=== PATIENT | male | born 1980 | race Caucasian/White ===

== ENCOUNTER 2020-10-09 18:57 | Emergency (ER) | payer OTHER ==
[2020-10-09 19:09] VITALS: BP 130/85
[2020-10-09] MEDS ORDERED: AMOX/CLAV 875 MG/125 MG TABLET PO STA (20:12)
--- NOTE | 2020-10-09 20:14 | ED Physician Documentation ---
History of Present Illness - Stated complaint Stated Complaint: CAT BITE - Chief complaint Chief Complaint: Wound - History of Present Illness Timing: Prior to arrival - Additonal information Additional information: 40-year-old male presents to the emergency department for evaluation of cat bite puncture wounds to the left index finger sustained by his animal at home this evening. His also presents for evaluation of cat scratches and bite wounds as well. Animals vaccines are up-to-date. This gentleman's tetanus is up-to-date. Review of Systems Constitutional: reports: Reviewed and negative Ears: reports: Reviewed and negative Nose: reports: Reviewed and negative Throat: reports: Reviewed and negative Cardiac: reports: Reviewed and negative Respiratory: reports: Reviewed and negative GI: reports: Reviewed and negative : reports: Reviewed and negative Skin: reports: Bite / sting (left index finger) PD PAST MEDICAL HISTORY - Past Medical History Past Medical History: Yes Cardiovascular: High cholesterol - Past Surgical History Past Surgical History: No - Present Medications Home Medications: Ambulatory Orders Medication Instructions Recorded Confirmed Amox/Clav 875/125 [Augmentin] 1 each PO Q12H #20 tablet 10/09/20 - Social History Does the pt smoke?: No Smoking Status: Never smoker Does the pt have substance abuse?: No - Immunizations Immunizations are current?: Yes PD ED PE EXPANDED - Extremities Extremities: Left finger(s) (3 puncture wounds left index finger. 1 on dorsum just above MCP. 2 on palmar surface at DIP joint. Normal flexion extension of digit against resistance. 2+ distal radial pulse of left hand) Results - Vitals Vitals: Vital Signs - 24 hr 10/09/20 19:02 Temperature 36.6 C Heart Rate 68 Respiratory 14 Rate Blood Pressure 130/85 H O2 Saturation 98 Oxygen O2 Source Room air PD MEDICAL DECISION MAKING - ED course Complexity details: considered differential, d/w patient ED course: 40-year-old male presents the emergency department for evaluation and treatment of cat bite to left index finger. His tetanus is up-to-date. He will be started on Augmentin twice daily for 10 days. Emergent return precautions for concerns of infection discussed Departure - Departure Disposition: Home, Self Care Clinical Impression: Cat bite involving extremity Condition: Stable Record reviewed to determine appropriate education?: Yes Instructions: ED Animal Bite Ch Prescriptions: Amox/Clav 875/125 [Augmentin] 1 each PO Q12H #20 tablet Comments: It is important that you take the antibiotics as prescribed. Cat bites in particular have a high risk of infection. I recommend that you wash your wounds daily with warm soap and water and apply any antibiotic biotic ointment such as Neosporin or bacitracin. If at any point you have fevers, redness, swelling milky drainage or concerns of infection in this hand please return immediately to the ER
== END 2020-10-09 20:31 | disposition home or self-care (01) ==
LOC: ED 18:57
DX: S61.251A Open bite of left index finger without damage to nail, initial encounter (principal); W55.01XA Bitten by cat, initial encounter; Y93.89 Activity, other specified; Y92.009 Unspecified place in unspecified non-institutional (private) residence as the place of occurrence of the external cause
CPT/HCPCS: 99281; 99282; A9270

== ENCOUNTER 2023-12-21 08:36 | Emergency (ER) | payer OTHER ==
--- NOTE | 2023-12-21 09:23 | XRAY Report ---
PROCEDURE: Toe(s) 2+V RT INDICATIONS: great toe injury TECHNIQUE: 3 views of the first toe(s) acquired. COMPARISON: None. FINDINGS: Bones: No fractures or dislocations. No suspicious bony lesions. Soft tissues: No suspicious soft tissue densities. IMPRESSION: No acute fracture. No osseous lesion. If symptoms and/or clinical suspicion for pathology continue, f urther assessment with repeat plain films, or advanced imaging (e.g., CT, MRI, or bone scan) is recom mended for further assessment. Reviewed by: Bud Velarde MD on 12/21/2023 9:21 AM PST Approved by: Bud Velarde MD on 12/21/2023 9:21 AM [facility] Station ID: [id number]
[2023-12-21] MEDS: LIDOCAINE-EPINEPH-TETRACAINE 3 ML SYRINGE TOP STA (09:38)
--- NOTE | 2023-12-21 10:32 | ED Physician Documentation ---
PD HPI LOWER EXT INJURY - Stated complaint Stated Complaint: RT FOOT INJ - Chief complaint Chief Complaint: Trauma Ext - History obtained from History obtained from: Patient - Additional information Additional information: Patient is a 43-year-old male presenting for evaluation of injury to right great toe that happened last night. Patient dropped a cast iron skillet accidentally onto his toe. He reports having some bleeding. Does not take any blood thinners. 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 He tried to bandage it up but noticed that it was still bleeding this morning and thus has presented to the ER for evaluation. Review of Systems Skin: reports: Laceration (s) Musculoskeletal: reports: Extremity pain PD PAST MEDICAL HISTORY - Past Medical History Cardiovascular: High cholesterol, Atrial fibrillation Respiratory: Sleep apnea, CPAP use Neuro: None Endocrine/Autoimmune: None GI: None : None HEENT: None Psych: Depression, Anxiety Musculoskeletal: None Derm: None - Past Surgical History Past Surgical History: No - Present Medications Home Medications: Ambulatory Orders Medication Instructions Recorded Confirmed Escitalopram Oxalate 20 mg PO DAILY 12/21/23 12/21/23 - Allergies Allergies/Adverse Reactions: Allergies Allergy/AdvReac Type Severity Reaction Status Date / Time No Known Drug Allergies Allergy Verified 12/21/23 08:47 - Social History Does the pt smoke?: No Smoking Status: Never smoker Does the pt drink ETOH?: No Does the pt have substance abuse?: No - Immunizations Immunizations are current?: Yes - POLST Patient has POLST: No PD ED PE NORMAL - General General: Alert and oriented X 3, No acute distress, Well developed/nourished - HEENT HEENT: Atraumatic - Cardiac Cardiac: Strong equal pulses - Respiratory Respiratory: No respiratory distress - Extremities Extremities: Other (T-shaped laceration to right great toe medially; No nailbed involvement, Normal range of motion at Right great toe, minimal tenderness to toe. Brisk cap refill.) Results - Vitals Vitals: Vital Signs - 24 hr 12/21/23 12/21/23 08:48 11:03 Temperature 36.3 C L 36.5 C Heart Rate 64 61 Respiratory 16 18 Rate Blood Pressure 133/86 H 123/68 O2 Saturation 99 96 Oxygen O2 Source Room air Procedures - Laceration (location) R great toe Length in cm: 3 Wound type: Stellate Anesthesia: LET Skin layer closure: Size #-0 - enter number (4-0), Sutures - enter # (5) Other: Patient tolerated well, No complications, Neurovascular intact, Dressing applied, Tetanus UTD PD Medical Decision Making - ED course ED course: Patient with laceration to right great toe after injury yesterday. An x-ray was obtained which I reviewed I see no foreign body or fracture. Wound was cleaned and irrigated. Laceration was sutured closed with good hemostasis. Patient counseled regarding wound care instructions, need to return for suture removal as well as concerning symptoms to return for. Departure - Departure Disposition: Home, Self Care Clinical Impression: Laceration of toe Qualifiers: Encounter type: initial encounter Toe: great toe Damage to nail status: without damage Foreign body presence: without foreign body Laterality: right Qualified Code(s): S91.111A - Laceration without foreign body of right great toe without damage to nail, initial encounter Condition: Stable Instructions: ED Laceration Ext Sutr Stap Tape Comments: The x-ray of your toe does not show a broken bone. Your laceration did require repair with stitches. These should be kept in for 14 days. There are 5 stit ches. Return to the ER or to the walk-in clinic to have them removed in 2 weeks. I would recommend using a dressing on your toe when you are wearing boots or shoes. Come back for any signs of infection which would include: Redness, swelling, drainage, increased pain, or fevers. You can wash it soap and water. Keep it covered and moist with bacitracin ointment which is available over the counter; avoid neosporin. Follow-up with your physician in about 14 days for suture removal. Forms: PCP List Discharge Date/Time: 12/21/23 11:05
[2023-12-21 11:25] VITALS: BP 123/68; O2SAT 96
== END 2023-12-21 11:05 | disposition home or self-care (01) ==
LOC: ED 08:36
DX: S91.111A Laceration without foreign body of right great toe without damage to nail, initial encounter (principal); W20.8XXA Other cause of strike by thrown, projected or falling object, initial encounter; I48.91 Unspecified atrial fibrillation
CPT/HCPCS: 12002; 99283